=== PATIENT | female | born 1995 | race Two or more races ===

== ENCOUNTER 2024-12-23 20:04 | Emergency (ER) | payer MEDICAID ==
[~2024-12-23] VITALS: Ht 167.6 cm; Wt 63.5 kg
[2024-12-23 20:28] LABS: BASOPHILS # (AUTO) 0.1 K/UL (0.0-0.2); BASOPHILS % (AUTO) 0.7 % (0.0-2.0); EOSINOPHILS # (AUTO) 0.2 K/uL (0.0-0.7); EOSINOPHILS % (AUTO) 1.6 % (0.0-7.0); HEMOGLOBIN 11.5 g/dL (10.9-14.3); LYMPHOCYTES # (AUTO) 2.8 K/uL (0.8-4.8); LYMPHOCYTES % (AUTO) 23.9 % (20.5-51.5); MEAN CORPUSCULAR HEMOGLOBIN 29.5 uug (24.7-32.8); MEAN CORPUSCULAR HGB CONC 34 g/dL (32.3-35.6); MEAN CORPUSCULAR VOLUME 86.8 fL (75.5-95.3); MONOCYTES # (AUTO) 0.6 K/uL (0.1-1.30); MONOCYTES % (AUTO) 5.3 % (0.0-11.0); NEUTROPHILS % (AUTO) 68.5 % (38.5-71.5); PLATELET COUNT (AUTO) 302 K/uL (179-408); RED BLOOD CELL COUNT(AUTO) 3.91 MIL/uL (3.63-4.92); WHITE BLOOD COUNT (AUTO) 11.8 K/uL (3.8-11.8)
[2024-12-23 20:31] LABS: DIFFERENTIAL COMMENT 1
[2024-12-23 20:39] LABS: ETHANOL < 3 MG/DL (0-10)
[2024-12-23 20:46] LABS: ACETAMINOPHEN < 2.0 ug/mL (10-30); ALANINE AMINOTRANSFERASE 16 U/L (14-59); ALKALINE PHOSPHATASE 61 U/L (50-136); ASPARTATE AMINOTRANSFERASE 9 U/L (15-37); BILIRUBIN,DIRECT 0.1 mg/dL (0.0-0.2); BILIRUBIN,TOTAL 0.3 mg/dL (0.2-1.0); CALCIUM 8.4 mg/dL (8.5-10.1); CARBON DIOXIDE 24 mmol/L (21-32); CHLORIDE 103 mmol/L (98-107); CREATININE 0.5 mg/dL (0.6-1.3); GLUCOSE 127 mg/dL (74-106); SODIUM SERUM 139 mmol/L (136-145); TOTAL PROTEIN, SERUM 6.8 g/dL (6.4-8.2); UREA NITROGEN, BLOOD 5 mg/dL (7-18)
[2024-12-23 20:49] LABS: *BILIRUBIN,URIN NEGATIVE (NEGATIVE); *CLARITY,URINE CLEAR (CLEAR); *COLOR,URINE YELLOW (YELLOW); *KETONES,URINE NEGATIVE (NEGATIVE); *PROTEIN,URINE NEGATIVE (NEGATIVE); *UROBILINOGEN,URINE 0.2 E.U./dl (NORMAL); LEUKOCYTE ESTERASE ,URINE 1+ (NEGATIVE); NITRITE, URINE NEGATIVE (NEGATIVE); UGLUCOSE NEGATIVE (NEGATIVE)
[2024-12-23 20:53] LABS: *BLOOD, URINE TRACE (NEGATIVE)
[2024-12-23 21:02] LABS: *AMPHETAMINE, URINE POSITIVE (NEGATIVE); *BARBITURATE, URINE NEGATIVE (NEGATIVE); *BENZODIAZEPINE, URINE NEGATIVE (NEGATIVE); *CANNABINOID, URINE NEGATIVE (NEGATIVE); *COCCAINE, URINE NEGATIVE (NEGATIVE); *OPIATE, URINE NEGATIVE (NEGATIVE); *PHENCYCLIDINE SCREEN,URINE NEGATIVE (NEGATIVE); FENTANYL, URINE NEGATIVE (NEGATIVE)
[2024-12-23 21:06] LABS: BACTERIA,URINE FEW /HPF (NONE SEEN); RBC,URINE 0-3 /HPF (0-3); SQUAMOUS EPITHELIAL CELL,UR FEW /HPF (NONE SEEN); WBC,URINE 20-50 /HPF (0-3)
[2024-12-23] MEDS ORDERED: POTASSIUM CHLORIDE 20 MEQ TAB.PRT.SR ONE (22:49)
[2024-12-23] MEDS: POTASSIUM CHLORIDE 20 MEQ TAB.PRT.SR PO ONE (22:54)
[2024-12-23] MEDS: CEphaleXIN 500 MG CAPSULE PO ONE (22:59)
[2024-12-23] MEDS: ACETAMINOPHEN 325 MG TABLET PO ONE (22:59)
[2024-12-24] MEDS ORDERED: diphenhydrAMINE 50 MG CAPSULE ONE (09:20)
[2024-12-24] MEDS: diphenhydrAMINE 50 MG CAPSULE PO ONE (09:25)
[2024-12-24] MEDS: CEphaleXIN 500 MG CAPSULE PO SCH (22:03)
[2024-12-24] MEDS ORDERED: diphenhydrAMINE 25 MG CAP PO ONE (22:06)
[2024-12-24] MEDS ORDERED: ACETAMINOPHEN 325 MG TABLET ONE (22:06)
[2024-12-24] MEDS: diphenhydrAMINE 25 MG CAP PO ONE (22:09)
[2024-12-24] MEDS: ACETAMINOPHEN 325 MG TABLET PO ONE (22:09)
[2024-12-25] MEDS ORDERED: CEphaleXIN 500 MG CAPSULE ONE (09:03)
[2024-12-25] MEDS ORDERED: BUPRENORPHINE HCL 2 MG TAB.SUBL SL ONE (14:45)
[2024-12-25] MEDS: BUPRENORPHINE HCL 2 MG TAB.SUBL SL ONE (14:46)
[2024-12-25] MEDS ORDERED: CEPH500C2 PO (20:09)
[2024-12-25 20:30] VITALS: BP 105/78; TEMP 98.1; O2SAT 97
== END 2024-12-25 20:31 | disposition home or self-care (01) ==
LOC: ER 20:04
DX: T43.592A Poisoning by other antipsychotics and neuroleptics, intentional self-harm, initial encounter (principal); O9A.212 Injury, poisoning and certain other consequences of external causes complicating pregnancy, second trimester; O23.42 Unspecified infection of urinary tract in pregnancy, second trimester; O26.891 Other specified pregnancy related conditions, first trimester; O99.322 Drug use complicating pregnancy, second trimester; O99.332 Smoking (tobacco) complicating pregnancy, second trimester; O99.342 Other mental disorders complicating pregnancy, second trimester; O99.282 Endocrine, nutritional and metabolic diseases complicating pregnancy, second trimester; S20.219A Contusion of unspecified front wall of thorax, initial encounter; S09.90XA Unspecified injury of head, initial encounter; E87.6 Hypokalemia; F17.290 Nicotine dependence, other tobacco product, uncomplicated; F32.A Depression, unspecified; R56.9 Unspecified convulsions; R10.2 Pelvic and perineal pain; Z3A.14 14 weeks gestation of pregnancy; Z20.822 Contact with and (suspected) exposure to COVID-19; V43.62XA Car passenger injured in collision with other type car in traffic accident, initial encounter; Y93.89 Activity, other specified; Y92.488 Other paved roadways as the place of occurrence of the external cause; Y99.8 Other external cause status
CPT/HCPCS: 80076; 80048; 81001; 85025; 87426 ×2; 87086; 84702; 36415; 71046; 76815; 93005; 99285; 83605; 80299; 80320; 80307; 87804 ×2; Q0163 ×2; A4606; A4663; G0480